=== PATIENT | male | born 1970 | race Caucasian/White ===

== ENCOUNTER 2018-04-27 12:39 | Emergency (ER) | payer MEDICAID ==
[~2018-04-27] VITALS: Ht 190.5 cm; Wt 95.0 kg
--- NOTE | 2018-04-27 12:52 | NUR ---
Pt presents for L flank/back pain x3 weeks increasing. Pt states seen at [facility] at that time and felt better. increasing pain. Pt seen here yesterday with neg workup. Pt moaning in pain. Tachycardic. 88% RA. up to 94 with 2LNC
[2018-04-27] MEDS ORDERED: ONDANSETRON ODT 4 MG ONE (13:21)
[2018-04-27] MEDS ORDERED: KETOROLAC 30 MG/1 ML ONE (13:21)
[2018-04-27] MEDS ORDERED: MORPHINE SULFATE 4 MG/ML, 1ML ONE (13:21)
[2018-04-27] MEDS ORDERED: ONDANSETRON ODT 4 MG PO ONE (13:30)
[2018-04-27] MEDS ORDERED: MORPHINE SULFATE 4 MG/ML, 1ML IVPush PRN (13:30)
[2018-04-27] MEDS ORDERED: SODIUM CHLORIDE FLUSH 10ML SYR IVF ONE (13:30)
[2018-04-27] MEDS ORDERED: KETOROLAC 30 MG/1 ML IVPush ONE (13:30)
[2018-04-27 13:50] LABS: BASOPHILS # (AUTO) 0.04 x10^3/uL (0-0.1); BASOPHILS % (AUTO) 0 % (0-1); EOSINOPHILS # (AUTO) 0.76 x10^3/uL (0-0.4); EOSINOPHILS % (AUTO) 9 % (1-7); LYMPHOCYTES # (AUTO) 2.27 x10^3/uL (1-3.4); LYMPHOCYTES % (AUTO) 26 % (22-44); MD NO; MEAN CORPUSCULAR HEMOGLOBIN 29.6 pg (27.5-34.5); MEAN CORPUSCULAR HGB CONC 33.9 g/dL (33.2-36.2); MEAN CORPUSCULAR VOLUME 87.2 fL (81-97); MEAN PLATELET VOLUME 7.3 fL (7.4-10.4); MONOCYTES # (AUTO) 0.94 x10^3/uL (0.2-0.8); MONOCYTES % (AUTO) 11 % (2-9); NEUTROPHILS # (AUTO) 4.77 x10^3/uL (1.8-6.8); NEUTROPHILS % (AUTO) 54 % (42-75); PLATELET COUNT 292 x10^3/uL (130-400); RED BLOOD COUNT 5.01 x10^6/uL (4.38-5.82); RED CELL DISTRIBUTION WIDTH 13.4 % (9.4-14.8)
[2018-04-27 13:58] LABS: ALANINE AMINOTRANSFERASE 25 U/L (12-78); ALBUMIN 3.2 g/dL (3.4-5.0); ANION GAP 4 mmol/L (5-15); CALCIUM 8.3 mg/dL (8.5-10.1); CHLORIDE 104 mmol/L (98-107); CREATININE 0.95 mg/dL (0.7-1.3)
[2018-04-27 14:00] LABS: ALKALINE PHOSPHATASE 80 U/L (45-117); BILIRUBIN,TOTAL 0.4 mg/dL (0.2-1.0); TOTAL PROTEIN 7.7 g/dL (6.4-8.2)
[2018-04-27] MEDS ORDERED: OMNIPAQUE 350 MG/ML, 100ML BOTTLE ONE (14:06)
--- NOTE | 2018-04-27 14:21 | NUR ---
TASK RN: PT ATTEMPTED TO PROVIDE UA SAMPLE AND WAS UNABLE TO DO SO AT THIS TIME. PT REFUSING STRAIGHT CATH AT THIS TIME.
--- NOTE | 2018-04-27 14:46 | NUR ---
TASK RN: PT SLEEPING ON GURNEY. UNABLE TO PROVIDE UA SAMPLE. ADITHYA NOLAN.
[2018-04-27 15:31] VITALS: BP 128/83
[2018-04-27 15:44] LABS: CULTURE INDICATED? NO; MICROSCOPIC NOT IND
== END 2018-04-27 16:22 | disposition home or self-care (01) ==
LOC: ED 13:39
DX: R07.89 Other chest pain (principal); R10.9 Unspecified abdominal pain; Z21 Asymptomatic human immunodeficiency virus [HIV] infection status
CPT/HCPCS: 36415; 71275; 74176; 80053; 81003; 85025; 93005; 96374; 96375; 99284; J1885; Q0162; Q9967

== ENCOUNTER 2019-06-23 01:32 | Emergency (ER) | payer SELFPAY ==
[~2019-06-23] VITALS: Ht 182.9 cm; Wt 85.0 kg
[2019-06-23 01:39] VITALS: BP 157/84
--- NOTE | 2019-06-23 01:51 | NUR ---
PT CAME IN WITH [facility]I, PT SHORTLY AFTER GETTING CHECKED IN WANTED TO LEAVE AMA. PT SIGNED AMA. A [employer]AIL FARMER GAVE THIS RN HIS BELONGINGS, WHICH WERE ALL GIVEN BACK. PT LEFT WITH FRIEND "ARAMIS" BY JUNG, PT SIGNED AMA DESPITE EDUCATION ON DRUG USE AND NARCAN GIVEN BY ROMI. PT REFUSED WORK UP. DR HANSEN TO BS. IV REMOVED.
== END 2019-06-23 02:01 ==
LOC: ED 01:55
DX: T40.1X1A Poisoning by heroin, accidental (unintentional), initial encounter (principal); F11.129 Opioid abuse with intoxication, unspecified; R00.0 Tachycardia, unspecified; Z72.9 Problem related to lifestyle, unspecified
CPT/HCPCS: 93005; 99283